=== PATIENT | male | born 1995 | race Caucasian/White ===

== ENCOUNTER 2017-12-31 13:18 | Emergency (ER) | payer OTHER ==
[~2017-12-31] VITALS: Ht 180.3 cm; Wt 70.7 kg
[2017-12-31] MEDS ORDERED: SODIUM CHLORIDE 0.9% 1,000 ML IV ONE (13:38)
[2017-12-31] MEDS ORDERED: CAPSAICIN CRM 0.075%, 60GM TP ONE (13:40)
[2017-12-31 13:58] LABS: BASOPHILS # (AUTO) 0.08 x10^3/uL (0-0.1); BASOPHILS % (AUTO) 1 % (0-1); EOSINOPHILS # (AUTO) 0.04 x10^3/uL (0-0.4); EOSINOPHILS % (AUTO) 0 % (1-7); LYMPHOCYTES # (AUTO) 1.58 x10^3/uL (1-3.4); LYMPHOCYTES % (AUTO) 14 % (22-44); MD NO; MEAN CORPUSCULAR HEMOGLOBIN 30.8 pg (27.5-34.5); MEAN CORPUSCULAR HGB CONC 34.3 g/dL (33.2-36.2); MEAN CORPUSCULAR VOLUME 89.7 fL (81-97); MEAN PLATELET VOLUME 8.4 fL (7.4-10.4); MONOCYTES # (AUTO) 0.36 x10^3/uL (0.2-0.8); MONOCYTES % (AUTO) 3 % (2-9); NEUTROPHILS # (AUTO) 9.35 x10^3/uL (1.8-6.8); NEUTROPHILS % (AUTO) 82 % (42-75); PLATELET COUNT 329 x10^3/uL (130-400); RED BLOOD COUNT 5.11 x10^6/uL (4.38-5.82); RED CELL DISTRIBUTION WIDTH 12.6 % (9.4-14.8)
[2017-12-31] MEDS ORDERED: SODIUM CHLORIDE 0.9% 1,000ML IVBOLUS ONE (14:00)
[2017-12-31] MEDS ORDERED: ONDANSETRON ODT 4 MG PO ONE (14:00)
[2017-12-31] MEDS ORDERED: SODIUM CHLORIDE FLUSH 10ML SYR IVF ONE (14:00)
[2017-12-31] MEDS ORDERED: FAMOTIDINE 20 MG/2 ML IVP ONE (14:00)
[2017-12-31 14:09] LABS: ALANINE AMINOTRANSFERASE 96 U/L (12-78); ALBUMIN 4.6 g/dL (3.4-5.0); ANION GAP 11 mmol/L (5-15); CALCIUM 9.7 mg/dL (8.5-10.1); CHLORIDE 105 mmol/L (98-107); CREATININE 1.18 mg/dL (0.7-1.3)
[2017-12-31 14:11] LABS: ALKALINE PHOSPHATASE 67 U/L (45-117); BILIRUBIN,TOTAL 0.3 mg/dL (0.2-1.0); TOTAL PROTEIN 7.8 g/dL (6.4-8.2)
[2017-12-31] MEDS ORDERED: FAMOTIDINE 20 MG/2 ML ONE (14:24)
[2017-12-31] MEDS ORDERED: ONDANSETRON ODT 8 MG ONE (14:24)
[2017-12-31] MEDS ORDERED: ONDANSETRON ODT 4 MG ONE (14:27)
[2017-12-31] MEDS ORDERED: CAPSAICIN CRM 0.025%, 60GM TP ONE (15:00)
[2017-12-31] MEDS ORDERED: CEFTRIAXONE PMX 1GM/50ML 50 ML ONE (15:35)
[2017-12-31] MEDS ORDERED: HALOPERIDOL 5 MG/ML ONE (15:58)
[2017-12-31] MEDS ORDERED: HALOPERIDOL 5 MG/ML IV ONE (16:00)
[2017-12-31] MEDS ORDERED: DIPHENHYDRAMINE 50 MG/ML, 1ML ONE (16:57)
[2017-12-31] MEDS ORDERED: DIPHENHYDRAMINE 50 MG/ML, 1ML IVPush ONE (17:00)
[2017-12-31] MEDS ORDERED: LORazepam 2 MG/ML, 1ML ONE (17:20)
[2017-12-31] MEDS ORDERED: LORazepam 2 MG/ML, 1ML IVPush ONE (17:30)
[2017-12-31 19:08] VITALS: BP 123/79
== END 2017-12-31 19:11 | disposition home or self-care (01) ==
LOC: ED 14:28
DX: R10.84 Generalized abdominal pain (principal); F12.20 Cannabis dependence, uncomplicated; K59.00 Constipation, unspecified; F11.20 Opioid dependence, uncomplicated
CPT/HCPCS: 80053; 82962; 83690; 85025; 86677; 96374; 96375; 99285; J1200; J1630; J2060; J7030; Q0162; S0028

== ENCOUNTER 2018-01-18 11:21 | Emergency (ER) | payer OTHER ==
[~2018-01-18] VITALS: Ht 180.3 cm; Wt 72.2 kg
[2018-01-18] MEDS ORDERED: FAMOTIDINE 20 MG/2 ML ONE (11:52)
[2018-01-18] MEDS ORDERED: METOCLOPRAMIDE 5 MG/ML, 2ML ONE (11:52)
[2018-01-18] MEDS ORDERED: LORazepam 2 MG/ML, 1ML ONE ×2 (11:52→13:21)
[2018-01-18] MEDS ORDERED: FAMOTIDINE 20 MG/2 ML IVP ONE (12:00)
[2018-01-18] MEDS ORDERED: SODIUM CHLORIDE 0.9% 1,000ML IVBOLUS ONE (12:00)
[2018-01-18] MEDS ORDERED: SODIUM CHLORIDE FLUSH 10ML SYR IVF ONE (12:00)
[2018-01-18] MEDS ORDERED: METOCLOPRAMIDE 5 MG/ML, 2ML IVPush ONE (12:00)
[2018-01-18] MEDS ORDERED: LORazepam 2 MG/ML, 1ML IVPush ONE ×2 (12:00→13:30)
[2018-01-18 12:06] LABS: BASOPHILS # (AUTO) 0.05 x10^3/uL (0-0.1); BASOPHILS % (AUTO) 1 % (0-1); EOSINOPHILS # (AUTO) 0.33 x10^3/uL (0-0.4); EOSINOPHILS % (AUTO) 4 % (1-7); LYMPHOCYTES # (AUTO) 1.76 x10^3/uL (1-3.4); LYMPHOCYTES % (AUTO) 19 % (22-44); MD NO; MEAN CORPUSCULAR HEMOGLOBIN 30.7 pg (27.5-34.5); MEAN CORPUSCULAR HGB CONC 34.3 g/dL (33.2-36.2); MEAN CORPUSCULAR VOLUME 89.6 fL (81-97); MEAN PLATELET VOLUME 8.3 fL (7.4-10.4); MONOCYTES % (AUTO) 5 % (2-9); NEUTROPHILS # (AUTO) 6.68 x10^3/uL (1.8-6.8); NEUTROPHILS % (AUTO) 72 % (42-75); PLATELET COUNT 343 x10^3/uL (130-400); RED BLOOD COUNT 5.22 x10^6/uL (4.38-5.82); RED CELL DISTRIBUTION WIDTH 12.6 % (9.4-14.8)
[2018-01-18] MEDS ORDERED: ONDANSETRON 2MG/ML, 2ML ONE (12:11)
[2018-01-18 12:16] LABS: ALANINE AMINOTRANSFERASE 182 U/L (12-78); ALBUMIN 4.5 g/dL (3.4-5.0); ANION GAP 10 mmol/L (5-15); CALCIUM 10.1 mg/dL (8.5-10.1); CHLORIDE 110 mmol/L (98-107)
[2018-01-18 12:18] LABS: ALKALINE PHOSPHATASE 63 U/L (45-117); BILIRUBIN,TOTAL 0.5 mg/dL (0.2-1.0); CREATININE 1.19 mg/dL (0.7-1.3); TOTAL PROTEIN 8.1 g/dL (6.4-8.2)
[2018-01-18] MEDS ORDERED: ONDANSETRON 2MG/ML, 2ML IVPush ONE (12:30)
[2018-01-18 12:58] VITALS: BP 132/85
== END 2018-01-18 13:40 | disposition home or self-care (01) ==
LOC: ED 11:39
DX: F11.23 Opioid dependence with withdrawal (principal); R11.2 Nausea with vomiting, unspecified; R10.13 Epigastric pain; F41.9 Anxiety disorder, unspecified
CPT/HCPCS: 36415; 76700; 80053; 83690; 85025; 96361; 96374; 96375; 96376; 99285; J2060; J2405; J2765; J3490; J7030

== ENCOUNTER 2018-09-18 01:09 | Emergency (ER) | payer OTHER ==
[~2018-09-18] VITALS: Ht 182.9 cm; Wt 75.7 kg
[2018-09-18] MEDS ORDERED: BUPR300S IM (01:23)
--- NOTE | 2018-09-18 02:24 | NUR ---
PT AND PARENTS DISCUSSING PLAN, AWARE THAT POISON CONTROL RECOMMENDS PT BE MONITORED FOR AT LEAST 6 MORE HOURS HERE DUE TO RISK OF RESP DEPRESSION. PT STATES THAT HE WANTS TO THINK ABOUT THIS A LITTLE MORE, PT LEANING TOWARD NOT WANTING TO STAY. ENCOURAGED TO PLEASE STAY AND THAT HIS PARENTS COULD GO HOME AND GET SOME REST AND COME PICK HIM UP IN THE MORNING, PT REFUSING TO ALLOW HIS PARENTS TO GET SOME REST.
--- NOTE | 2018-09-18 02:44 | NUR ---
DISCHARGE INSTRUCTIONS TO PT AND FAMILY. PT STRONGLY ENCOURAGED TO CONTINUE ON PATH OF SOBRIETY.
[2018-09-18 02:57] VITALS: BP 118/77
== END 2018-09-18 02:59 | disposition home or self-care (01) ==
LOC: ED 01:57
DX: F13.232 Sedative, hypnotic or anxiolytic dependence with withdrawal with perceptual disturbance (principal); T42.4X1A Poisoning by benzodiazepines, accidental (unintentional), initial encounter; Y92.9 Unspecified place or not applicable
CPT/HCPCS: 99281